=== PATIENT | female | born 1970 | race Caucasian/White ===

== ENCOUNTER 2022-10-16 05:03 | Observation (INO) ==
--- NOTE | 2022-10-10 14:11 | Anesthesiology Consultation ---
Date of Service October 10, 2022 Assessment & Plan (1) Encounter for pre-operative examination: Plan - Outpatient joint assessment: Patient is currently scheduled for inpatient pathway. If re-evaluated pending system levels during current pandemic/surgeon requests outpatient pathway, patient is acceptable candidate for outpatient joint program from anesthesia standpoint. - COVID screening: Per dry cleaning teacher on 10/10/2022: Travel screen negative, no known COVID-19 positive contacts or current COVID-19 related symptoms in past 2 weeks. To surgeon's discretion if preop COVID testing is needed. Chart Review Chart Review: Acceptable Risk for Surgery and Patient NOT seen in Pre Admission Testing History Surgery Operation Date: 10/16/22 10:50 Proposed Procedures p Right Anterior Total Hip Arthroplasty - Devin Osman, Height/Weight Height: 5 ft 7 in Weight: 63.503 kg Allergies Allergy/AdvReac Type Severity Reaction Status Date / Time Penicillins Allergy Unknown Hives Verified 10/10/22 13:44 Medications Home Medications Medication Instructions Recorded Confirmed Last Taken cyclobenzaprine 5 mg tablet 5 mg PO TID PRN muscle spasms 09/13/22 10/10/22 Unknown hydroxyzine HCl 10 mg tablet 5 mg PO HS PRN Sleep 09/13/22 10/10/22 Unknown lorazepam 0.5 mg tablet (Ativan) 0.5 mg PO TID PRN Anxiety 09/13/22 10/10/22 Unknown ondansetron 4 mg disintegrating 4 mg PO Q8H 09/13/22 10/10/22 Unknown tablet rizatriptan 5 mg tablet See Rx Instructions PO .COMPLEX 09/13/22 10/10/22 Unknown multivitamin 1 tab PO QAM 10/10/22 10/10/22 Unknown paroxetine HCl 40 mg tablet (Paxil) 40 mg PO QAM 10/10/22 10/10/22 Unknown Past Medical History Medical History Anxiety and depression Migraine Osteoarthritis of right hip Past Family History Family History Other No family history of adverse response to anesthesia Past Surgical History Surgical History Hx of section x2 Hx of hysterectomy Hx of laparoscopy x2 for endometriosis Hx of wisdom tooth extraction Social History Smoking Status: Former smoker tobacco type: cigarettes Smoking cigarettes per day: quit ~6 weeks ago Do You Dip or Chew Tobacco: No Hx Alcohol Use: No Hx Substance Use: No substance use type: does not use Lab Results Anesthesia Preop Results Results Anesthesia Widget: Na 138 mmol/L (136-145) 09/13/22 K 4.1 mmol/L (3.5-5.1) 09/13/22 Cl 104 mmol/L (98-107) 09/13/22 CO2 28 mmol/L (21-32) 09/13/22 BUN 21 mg/dl (6-23) 09/13/22 Creat 0.96 mg/dl (0.6-1.2) 09/13/22 Glucose Level 113 mg/dl (70-99(Fasting)) H 09/13/22 PT 10.2 Seconds (9.0-12.0) 09/13/22 PTT 26.5 Seconds (21.0-31.0) 09/13/22 INR 0.9 (0.9-1.1) 09/13/22 Blood Type B Positive 09/13/22 Antibody Screen NEGATIVE 09/13/22 Testing Electrocardiogram Date: 09/13/22 NSR, rate 90 bpm Chest X-Ray Date: 09/13/22 No acute process
--- NOTE | 2022-10-12 15:30 | History & Physical Report ---
Date of Service October 12, 2022 Assessment & Plan (1) Osteoarthritis of right hip: We will proceed with a right total hip arthroplasty. Postoperatively she will be kept overnight in the hospital for postop medical management. She will be started on aspirin for DVT prophylaxis. She plans to have the hospital set up home health before discharge. History of Present Illness Chief Complaint: Osteoarthritis of the right hip. Primary Care Provider: Jai Lauren Octavia is a pleasant 52-year-old female who has been dealing with chronic right hip pain. It has been much worse over the past 3 weeks. She has been downgraded to a crutch. She has difficult ambulating. X-rays and clinical examination been diagnostic for advanced osteoarthritis of the right hip. After failing conservative treatment, she is elected proceed with a right total hip arthroplasty. Allergies Allergy/AdvReac Type Severity Reaction Status Date / Time Penicillins Allergy Unknown Hives Verified 10/10/22 13:44 Home Medications Medication Instructions Recorded Confirmed Type cyclobenzaprine 5 mg tablet 5 mg PO TID PRN muscle spasms 09/13/22 10/10/22 History hydroxyzine HCl 10 mg tablet 5 mg PO HS PRN Sleep 09/13/22 10/10/22 History lorazepam 0.5 mg tablet (Ativan) 0.5 mg PO TID PRN Anxiety 09/13/22 10/10/22 History ondansetron 4 mg disintegrating 4 mg PO Q8H 09/13/22 10/10/22 History tablet rizatriptan 5 mg tablet See Rx Instructions PO .COMPLEX 09/13/22 10/10/22 History multivitamin 1 tab PO QAM 10/10/22 10/10/22 History paroxetine HCl 40 mg tablet (Paxil) 40 mg PO QAM 10/10/22 10/10/22 History Past Med/Surg History Medical History Anxiety and depression Migraine Osteoarthritis of right hip Surgical History Hx of section x2 Hx of hysterectomy Hx of laparoscopy x2 for endometriosis Hx of wisdom tooth extraction Family History Other No family history of adverse response to anesthesia Social History Smoking Status: Former smoker Cigarettes Per Day: quit ~6 weeks ago; Second Hand Exposure: No; Do You Dip or Chew Tobacco: No; Tobacco Cessation Education Requested by Patient: No Hx Alcohol Use: No Hx Substance Use: No Preferred Language: Nepali Communication Ability: Effective 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 Physical Exam On physical examination of the right hip, she is ambulating with a crutch. She has decreased range of motion. She has pain with internal and external rotation.. Constitutional WD/WN, vitals as above Eyes PERRL, conjunctivae normal, anicteric sclerae ENMT external ear and nose normal, oropharynx normal Neck trachea midline, no thyromegaly Respiratory normal respiratory effort, lungs clear to auscultation Cardiovascular RRR, no murmur, no edema Gastrointestinal (Abdomen) normal bowel sounds, soft, nontender, no hepatosplenomegaly Skin no rashes, warm and dry Psychiatric A+Ox3, euthymic affect Results & Data Results & Data Laboratory Results . Diagnostic Findings X-rays of the right hip show advanced osteoarthritis with joint space narrowing, osteophyte formation, and [id number] articulation. PG Care Time/CCT Total # of Minutes Spent Total Time Spent with Patient: Total time spent is greater than 50% in coordination of care (as documented) at patient's floor/unit and/or counseling patient: Coding Level of Care Code None Diagnoses Osteoarthritis of right hip M16.11
[2022-10-16] MEDS ORDERED: LR 60ML/HR IV SCH (06:00)
[2022-10-16] MEDS ORDERED: ACETAMINOPHEN 500 MG TAB PO SCH (06:00)
[2022-10-16] MEDS ORDERED: ORTHO JOINT MIX INFIL SCH (06:00)
[2022-10-16] MEDS ORDERED: FAMOTIDINE 20 MG TAB PO SCH (06:00)
[2022-10-16] MEDS ORDERED: ceFAZolin 2000MG 2,000 MG/15 ML SYR IV SCH (06:00)
[2022-10-16] MEDS ORDERED: GABAPENTIN 900 MG DOSE PO SCH (06:00)
[2022-10-16] MEDS ORDERED: LR 500ML BOLUS, THEN 15ML/HR IV SCH (06:00)
[2022-10-16] MEDS ORDERED: TRANEXAMIC ACID 1,000 MG **IV Pre-op IV SCH (06:00)
[2022-10-16] MEDS ORDERED: TRANEXAMIC ACID 1,000 MG **IV Intra-op IV SCH (06:00)
[2022-10-16] MEDS ORDERED: dexAMETHasone 4 MG TAB PO SCH (06:00)
[2022-10-16] MEDS ORDERED: BUPIVACAINE 0.5 % 5 MG/1 ML PF 10ML VIAL ONE (06:17)
[2022-10-16] MEDS ORDERED: MIDAZOLAM HCL 1 MG/ML 2ML VIAL ONE (06:24)
[2022-10-16] MEDS ORDERED: KETAMINE 50 MG/5 ML SYRINGE ONE (06:25)
--- NOTE | 2022-10-16 06:40 | History & Physical Bridge Note ---
Date of Service October 16, 2022 History & Physical Bridge Note I have examined the patient, reviewed the History & Physical and in the interval since the performance of the History & Physical I have noted the following changes of clinical significance: no changes noted
[2022-10-16] MEDS ORDERED: ORTHO JOINT ANESTHETIC ONE (06:53)
[2022-10-16] MEDS ORDERED: PROMETHAZINE HCL 12.5 MG in SODIUM CHLORIDE 0.9% 50 ML IV PRN (06:59)
[2022-10-16] MEDS ORDERED: fentaNYL citrate PF 100 MCG/2 ML VIAL IV PRN (06:59)
[2022-10-16] MEDS ORDERED: ATROPINE SULFATE 0.1 MG/ML 10ML SYR IV PRN (06:59)
[2022-10-16] MEDS ORDERED: ePHEDrine sulfate 50 MG/ML AMP IV PRN (06:59)
[2022-10-16] MEDS ORDERED: HYDROmorphone INJ 2 MG/ML SYR/VIAL IV PRN (06:59)
[2022-10-16] MEDS ORDERED: ONDANSETRON INJ 2 MG/ML 2 ML VIAL IV PRN ×2 (06:59→09:56)
[2022-10-16] MEDS ORDERED: GLYCOPYRROLATE 0.2 MG/ML VIAL ONE (07:31)
[2022-10-16] MEDS ORDERED: PHENYLEPHRINE HCL 10 MG/ML VIAL ONE (07:31)
[2022-10-16] MEDS ORDERED: ONDANSETRON INJ 2 MG/ML 2 ML VIAL ONE (07:31)
[2022-10-16] MEDS ORDERED: PROPOFOL IV EMULSION 10 MG/ML 20 ML VIAL IV ONE (07:31)
[2022-10-16] MEDS ORDERED: LIDOCAINE 2% 2 ML VIAL/AMP(20MG/ML) INFIL ONE (07:31)
--- NOTE | 2022-10-16 08:14 | Operative Report ---
PG Post Operative Report Pre & Post Diagnosis Operation Date: 10/16/22 07:00 Pre-Op Diagnosis: Degenerative Joint Disease Right Hip Post-Op Diagnosis: Degenerative Joint Disease Right Hip I identified the patient and participated in the time-out.: Yes Procedure Operation Date: 10/16/22 07:00 Actual Procedures p Right Anterior Total Hip Arthroplasty(Right) - Devin Osman DO Surgeon Devin Osman DO Power Press Tender Devin Amin PA-C Estimated Blood Loss 150 Findings Consistent with Post-Op Diagnosis Specimens Right femoral head Description of Procedure Implants used I used a ZimmerBiomet total hip arthroplasty system with a size 2 standard offset Avenir Complete stem, a 46 mm G7 cup with a 25mm screw, an E1 polyet hylene liner, a 32 mm ceramic head with a +3.5 neck. Octavia arrived at the hospital for the above procedure. She was seen in the preoperative holding area and the operative extremity was identified and signed. She was given a spinal anesthetic, a preoperative antibiotic, and TXA. She was then taken back to the operating room and laid on the table in the supine position. She was given basic sedation. The operative leg was secured to a Puristst leg positioner. The hip was then prepped and draped in sterile fashion. A timeout was done and the patient and the operative extremity was properly identified. An anterior approach was used. Dissection was taken down through the fascia and the tensor muscle belly was retracted laterally and the rectus was retracted medially. The circumflex vessels were identified and ligated. The capsule was then incised and tagged for later repair. The femoral neck was then cut and the femoral head was removed. The acetabulum was exposed. Time was spent doing a complete circumferential labral release. Sequential reaming of the acetabulum up to a size 45 reamer was done. Final reamings were done under fluoroscopy to ensure appropriate version. A Biomet 46 mm G7 cup was then impacted into place. A single 25 mm screw was placed. The E1 polyethylene liner was then snapped into place. Surrounding soft tissues were then injected with 100 cc of an orthopedic pain control cocktail. The proximal femur was then exposed. Sequential broaching up to a size 2 broach was done. Off that broach a size 32 head with a +3.5 neck was trialed. The hip was reduced and fluoroscopic images showed anatomic alignment of the implants in acceptable length. The broach was removed. The final size 2 standard offset Avenir Complete stem was then impacted into place. A ceramic 32 mm head with a +3.5 neck was then impacted onto the stem and the hip was reduced. Final fluoroscopic images showed anatomic alignment of the hip. The capsule was then closed with #1 Vicryl suture. A dilute betadyne lavage was then done for 3 minutes. The joint was then irrigated with normal saline solution. The fascia was closed with #1 PDS suture. Skin was closed with 2-0 Vicryl, john, and a Silverlon dressing. She was then transferred to a hospital bed and taken to the post anesthesia care unit in stable condition. She tolerated the procedure well. Devin Amin PA-C, was present for the entire procedure. He was critical for patient positioning, prepping, draping, retraction exposure, wound closure and application of sterile dressing. I attest to the content of the Intraoperative Record and any orders documented therein. Any exceptions are noted below.
--- NOTE | 2022-10-16 09:02 | Fluoroscopy Report ---
FL hip RT 1V CLINICAL HISTORY: Right hip arthroplasty. COMPARISON STUDY: Pelvis and hip radiographs August 10, 2022. FLUOROSCOPY TIME: 27 seconds. Ka, r: 1.9983 mGy FLUOROSCOPIC IMAGES: 1 FINDINGS: Fluoroscopy was provided during anterior total right hip arthroplasty. Hardware is intact. There is an acetabular screw. There are no unexpected radiopaque foreign bodies. IMPRESSION: Fluoroscopy provided during total right hip arthroplasty. ACT 112: Negative or not required by law. Electronically signed by: Fredo Rizo M.D. 10/16/2022 9:01 AM
--- NOTE | 2022-10-16 09:15 | Anesthesiology Progress Note ---
Date of Service October 16, 2022 Anesthesia Post Procedure Vital Signs Vital Signs: Temp Pulse Pulse Resp BP BP Pulse Ox 10/16/22 09:10 86 18 129/84 97 10/16/22 09:00 36.8 C 92 H 13 118/79 99 10/16/22 08:50 92 H 13 121/66 98 10/16/22 08:40 97 H 12 114/74 100 10/16/22 08:31 36.2 C L 98 H 13 108/70 98 10/16/22 05:38 36.9 C 95 H 18 128/88 96 O2 Del Method O2 Flow Rate 10/16/22 09:10 Room Air 10/16/22 09:00 Room Air 10/16/22 08:50 Room Air 10/16/22 08:40 Nasal Cannula 2 10/16/22 08:31 Nasal Cannula 3 10/16/22 05:38 Room Air Pain Intensity Right Hip: Pain Intensity: 7 Transfer of Care Handoff Completed per policy Notes Mental Status: alert / awake / arousable and participated in evaluation Nausea / Vomiting: adequately controlled Pain: adequately controlled Airway Patency, RR, SpO2: stable & adequate BP & HR: stable & adequate Hydration State: stable & adequate Neuraxial Anesthesia: was administered and sensory block is resolving Anesthetic Complications: no major complications apparent and Pt Satisfied with anesthetic care
[2022-10-16] MEDS ORDERED: HYDROmorphone INJ 0.5 MG/0.5 ML SYR IV PRN (09:56)
[2022-10-16] MEDS ORDERED: LORazepam 0.5 MG TAB PO PRN (09:56)
[2022-10-16] MEDS ORDERED: NALOXONE HCL 0.4 MG/1 ML VIAL/CARP IV PRN (09:56)
[2022-10-16] MEDS ORDERED: PARoxetine HCL 20 MG TAB PO SCH ×2 (09:56→21:00)
[2022-10-16] MEDS ORDERED: MAGNESIUM HYDROXIDE SUSP 30 ML UDC PO PRN (09:56)
[2022-10-16] MEDS ORDERED: bisacodyL 10 MG SUPP PR PRN (09:56)
[2022-10-16] MEDS ORDERED: hydrOXYzine HCl 10 MG TAB PO PRN (09:56)
[2022-10-16] MEDS ORDERED: RIZATRIPTAN BENZOATE 10 MG TAB PO PRN (09:56)
[2022-10-16] MEDS ORDERED: METOCLOPRAMIDE HCL INJ 5 MG/ML 2 ML VIAL IV PRN (09:56)
[2022-10-16] MEDS ORDERED: CYCLOBENZAPRINE HCL 5 MG TAB PO PRN (09:56)
[2022-10-16] MEDS: SODIUM CHLORIDE 0.9% 1000ML 1,000 ML IV SCH ×2 (10:35→20:25)
[2022-10-16] MEDS: DOCUSATE SODIUM 100 MG CAP PO SCH ×2 (10:35→20:27)
[2022-10-16] MEDS: KETOROLAC 30 MG/ML VIAL IV SCH ×3 (10:35→22:02)
[2022-10-16] MEDS ORDERED: Nursing to Pharmacy Communication SCH (10:45)
[2022-10-16] MEDS: ASPIRIN 81 MG ECTAB PO SCH ×2 (11:14→20:27)
[2022-10-16] MEDS: MULTIVITAMIN TAB PO SCH (11:15)
[2022-10-16] MEDS: oxyCODONE HCL IR 5 MG TAB (IMMEDIATE RELEASE) PO PRN ×3 (11:22→20:25)
--- NOTE | 2022-10-16 12:25 | XRay Report ---
XR hip 1V RT w pelvis HISTORY: 52 years-old Female IN PACU - Post Surgical right hip arthroplasty COMPARISON: Fluoroscopic images of same day TECHNIQUE: AP view of the pelvis with cross table lateral view of the right hip FINDINGS: Mild osteoarthritis of the left hip. A few corticated ossifications adjacent to the right acetabulum may represent fragmented osteophytes. Right hip arthroplasty with lateral skin john, expected post operative soft tissue swelling with deep tissue air. No acute fracture, dislocation on expected opaqu e foreign body identified. IMPRESSION: Right hip arthroplasty with expected postoperative changes. ACT 112: Negative or not required by law. The above report was generated using voice recognition software. It may contain grammatical, syntax o r spelling errors. Electronically signed by: Roland Proctor M.D. 10/16/2022 12:24 PM
[2022-10-16] MEDS: ACETAMINOPHEN 500 MG TAB PO SCH ×2 (13:05→22:02)
[2022-10-16] MEDS: ceFAZolin 2000MG 2,000 MG/15 ML SYR IV SCH ×2 (15:26→22:01)
[2022-10-16] MEDS ORDERED: SENNA 8.6 MG TAB PO SCH (21:00)
[2022-10-17] MEDS: oxyCODONE HCL IR 5 MG TAB (IMMEDIATE RELEASE) PO PRN ×3 (00:21→08:42)
[2022-10-17] MEDS: KETOROLAC 30 MG/ML VIAL IV SCH ×2 (03:31→09:01)
[2022-10-17] MEDS: ACETAMINOPHEN 500 MG TAB PO SCH (05:32)
[2022-10-17] MEDS: ASPIRIN 81 MG ECTAB PO SCH (07:33)
[2022-10-17] MEDS: DOCUSATE SODIUM 100 MG CAP PO SCH (07:33)
--- NOTE | 2022-10-17 07:33 | Orthopedic Progress Note ---
Date of Service October 17, 2022 Assessment & Plan (1) Status post right hip replacement: Overall she is doing very well. She is not having much pain in the right hip. She will be seen by physical therapy today for ambulation and range of motion exercises. She is on aspirin for DVT prophylaxis. She can be discharged home later today. She will follow-up with orthopedics in 2 weeks. Darvin Dudley was seen and examined at bedside this morning. Overall she is doing very well. She has a little bit of surgical pain but a lot of her preoperative pain is gone. She has been up and ambulating around the room. She has no complaints.. Review of Systems All systems reviewed & are unremarkable except as noted in HPI & below. Physical Exam On physical examination of the right hip, the dressing is clean and dry. Her leg is out full extension. She has active dorsiflexion plantarflexion of her right ankle.. Results & Data Results & Data Laboratory Results . Diagnostic Findings Postoperative x-rays of the right hip show the prosthesis to be in anatomic alignment without any evidence of fracture, dislocation, or loosening. PG Care Time/CCT Total # of Minutes Spent Total Time Spent with Patient: Total time spent is greater than 50% in coordination of care (as documented) at patient's floor/unit and/or counseling patient: Coding Level of Care Code 87180 Post Operative Follow-Up Diagnoses Status post right hip replacement Z96.641
[2022-10-17] MEDS: MULTIVITAMIN TAB PO SCH (07:34)
--- NOTE | 2022-10-17 07:34 | Discharge Summary ---
Date of Service October 17, 2022 Admission HPI (Per Admitting) Octavia is a pleasant 52-year-old female who has been dealing with chronic right hip pain. It has been much worse over the past 3 weeks. She has been downgraded to a crutch. She has difficult ambulating. X-rays and clinical examination been diagnostic for advanced osteoarthritis of the right hip. After failing conservative treatment, she is elected proceed with a right total hip arthroplasty. Admission Exam (Per Admitting) On physical examination of the right hip, she is ambulating with a crutch. She has decreased range of motion. She has pain with internal and external rotation.. Principal Diagnosis Same as "Discharge Diagnosis" noted below under Discharge Instructions. Discharge Exam On physical examination of the right hip, the dressing is clean and dry. Her leg is out full extension. She has active dorsiflexion plantarflexion of her right ankle.. Discharge Data Procedures Performed Operation Date: 10/16/22 07:00 Actual Procedures p Right Anterior Total Hip Arthroplasty(Right) - Devin Osman DO Ordered Studies 10/16/22 07:00 FL hip RT 1V Routine Hospital Course (1) Status post right hip replacement: On October 16, 2022 Octavia arrived at [facility] and underwent a right hip replacement without complication. She had a spinal anesthetic. Postoperatively she was started on aspirin for DVT prophylaxis and transferred to the general orthopedic floors. Her hospital course was uneventful. On postop day #1, her vital signs were stable and her pain was well controlled. She was able to participate well with physical therapy doing ambulation and range of motion exercises. She was then discharged home. She will follow-up with orthopedics in 2 weeks. PG Care Time/CCT Total # of Minutes Spent Total Time Spent with Patient: Total time spent is greater than 50% in coordination of care (as documented) at patient's floor/unit and/or counseling patient: Discharge Plan Discharge Items Patient Disposition: Home - Home Health Services Reason For Visit: DJD Hip Right Discharge Diagnosis: Right hip replacement Activity: Per Instructions section Non-emergency contact: Surgeon Call non-emergency contact if: your wound has increased redness and your wound has increased drainage Follow-up/Referrals: Jai Lauren M.D. [Primary Care Provider] - Diet: Regular Addtl Attending Provider Instructions: Activity and Therapy Recommendations: * If you are using [facility] then therapy will be provided at your home until they feel you have accomplished all of your goals. * If you are using [facility] then Physical Therapy will be provided until they feel you are ready to start Outpatient Physical Therapy. * If you are not using home therapy then Outpatient Physical Therapy should start about 3-5 days from your day of surgery. Therapy will last about 6-10 weeks * You were shown a series of exercises in the hospital. Do these exercises three times each day including the exercises you were shown in physical therapy. * Get up and walk several times each day.~ For the first four weeks, try not to stand or walk for more than one hour at a time. If you do stand or walk for more than one hour, you will not hurt anything, but your leg will likely swell.~~ * As you feel comfortable, you may change from the walker or crutches to a cane and~then to independent walking. Medications: * Narcotic You will likely be sent home from the hospital with a prescription for the narcotic pain medication that worked best throughout your stay. * Aspirin Most patients will be required to take Aspirin 81mg twice a day for 6 weeks after surgery. This is obtained [id number] and a prescription is not necessary. * Other medications may be prescribed for specific circumstances. If you have any questions, please call the office at . * Resume previous home medications unless otherwise instructed TEDs/Elastic Stockings: The white elastic stockings help limit swelling and prevent blood clots from forming in your legs. The more you wear them, the more they work. Wear them for six weeks. Dressing Care: Leave the Silverlon dressing in place for 7 days. After 7 days you may remove the dressing. If the incision is not draining then you may leave the john open to air. If there is a little bit of drainage or if the john are getting stuck on your clothing then cover the incision with a dry dressing. The john will be removed at your 2 week follow-up appointment. Showering: You may shower with the Silverlon dressing in place. Do not let the shower spray hit the dressing directly. Pat the Silverlon dressing dry. If the dressing becomes wet underneath, then simply remove the dressing. Keep the incision dry until you are 7 days out from the day of surgery. After 7 days you may remove the Silverlon dressing and shower with the john exposed. Let soapy water run over the john and pat them dry. Do not scrub or soak the incision. Things To Watch For: * Drainage from the incision site that occurs more than one week after your surgery. * Increased redness at the incision site. * Fever above 102 degrees Fahrenheit. * Unusual chest pain or shortness of breath. * Call [facility] at with any of the above problems Follow-Up Visit: Follow-up with Dr. Osman's PA (Devin Amin) 2-3 weeks after your day of surgery. He will remove your john and answer any questions. If you have any additional questions or concerns, Dr Osman is usually in the office at the same time and will be available An appointment was probably scheduled when you signed-up for surgery in the office. If you have any questions call Office Instructions: More detailed instructions as well as Frequently Asked Questions were provided in a folder by our office when you signed-up for surgery. Please review these instructions when you get home. If you have any further questions or concerns, please feel free to call the office at [phone] Pending Studies at Discharge: No Stand-Alone Forms: My [facility], Smoking Cessation Medications and DC Order Prescriptions: New oxycodone 5 mg Tablet 5 mg PO Q4H PRN (Reason: pain) Qty: 30 0RF aspirin 81 mg Tablet,Delayed Release (Dr/Ec) 81 mg PO BID 42 Days Qty: 84 0RF Continued lorazepam [Ativan] 0.5 mg tablet 0.5 mg PO TID PRN (Reason: Anxiety) rizatriptan 5 mg tablet See Rx Instructions PO .COMPLEX PRN (Reason: headaches) Rx Instructions: take 1 tablet at onset of headache; if no relief, may repeat 1 tablet after at least 2 hrs PO cyclobenzaprine 5 mg tablet 5 mg PO TID PRN (Reason: muscle spasms) ondansetron 4 mg tablet,disintegrating 4 mg PO Q8H PRN (Reason: Nausea) hydroxyzine HCl 10 mg tablet 5 mg PO HS PRN (Reason: Sleep) multivitamin Tablet 1 tab PO QAM paroxetine HCl [Paxil] 40 mg Tablet 40 mg PO QAM Admission Data Admit Date/Time: 10/16/22 08:34 Attending Provider: Devin Osman Admit Provider: Devin Osman Primary Care Provider: Jai Lauren
[2022-10-17] MEDS ORDERED: dexAMETHasone 4 MG TAB PO SCH (08:00)
== END 2022-10-17 11:10 | disposition home health service (06) ==
LOC: ASU 05:03 → 3E 05:03